=== PATIENT | female | born 1995 | race Caucasian/White ===

== ENCOUNTER 2024-12-04 23:56 | Inpatient (IN) | payer OTHER ==
[2024-12-05] MEDS ORDERED: METHOCARBAMOL 500 MG TABLET ONE (01:10)
[2024-12-05] MEDS ORDERED: oxyCODONE HCL 5 MG TABLET ONE (01:10)
[2024-12-05] MEDS: oxyCODONE HCL 5 MG TABLET PO ONE ×2 (01:22→23:31)
[2024-12-05] MEDS: METHOCARBAMOL 500 MG TABLET PO ONE (01:22)
[2024-12-05 01:38] LABS: CHLORIDE 107 mmol/L (98-107); POTASSIUM 4.3 mmol/L (3.5-5.1); SODIUM 138 mmol/L (136-145)
[2024-12-05 01:40] LABS: CALCIUM 9.1 mg/dL (8.5-10.1)
[2024-12-05 01:41] LABS: ALBUMIN 3.6 g/dl (3.4-5.0); ANION GAP 5 mmol/L (4-13); BLOOD UREA NITROGEN 10.4 mg/dL (7-18); CO2 27 mmol/L (21-32); GLUCOSE,RANDOM 98 mg/dL (74-106)
[2024-12-05 01:44] LABS: SGOT/AST 12 U/L (15-37); SGPT/ALT 17 U/L (13-61)
[2024-12-05 01:45] LABS: BILIRUBIN,TOTAL 0.4 mg/dL (0.2-1)
[2024-12-05 01:46] LABS: TOT PROT 7.7 g/dl (6.4-8.2)
[2024-12-05 01:47] LABS: ALK PHOS 69 U/L (45-117)
[2024-12-05] MEDS ORDERED: MORPHINE SULFATE 2 MG/ML SYRINGE ONE ×2 (02:35→05:41)
[2024-12-05] MEDS: morphine CARPU-JECT 2 MG/1 ML DISP.SYRIN IVPUSH ONE (02:41)
[2024-12-05] MEDS ORDERED: LIDOCAINE 4% PATCH TP ONE (03:52)
[2024-12-05] MEDS: LIDOCAINE 5% TOPICAL PATCH TP ONE (04:00)
[2024-12-05] MEDS ORDERED: ENOXAPARIN NA (PORCINE) 80 MG/0.8 ML DISP.SYRIN SQ ONE (04:33)
[2024-12-05 04:41] LABS: INR 1.15 (0.83-1.09); PROTHROMBIN TIME (PATIENT) 12.5 SEC (9.7-13.0)
[2024-12-05 04:44] LABS: ACTIVATED PTT 33.8 SECONDS (25.2-36.5)
[2024-12-05] MEDS: ENOXAPARIN NA (PORCINE) 80 MG/0.8 ML DISP.SYRIN SQ ONE (04:45)
[2024-12-05] MEDS: ENOXAPARIN NA (PORCINE) 60 MG/0.6 ML DISP.SYRIN SQ SCH (04:45)
[2024-12-05] MEDS ORDERED: ENOXAPARIN NA (PORCINE) 60 MG/0.6 ML DISP.SYRIN SQ SCH (04:45)
[2024-12-05 04:57] LABS: HEMOGLOBIN 12.3 g/dL (11.2-15.7); MCHC 31.5 g/dl (32.2-35.5); MEAN CELL VOLUME 87.6 fl (79.4-94.8); PLATELET COUNT 347 x10^3/uL (182-369); RDW 13.3 % (12.1-16.5)
[2024-12-05] MEDS: ENOXAPARIN NA (PORCINE) 60 MG/0.6 ML DISP.SYRIN SQ ONE (05:46)
[2024-12-05] MEDS: morphine CARPU-JECT 2 MG/1 ML DISP.SYRIN IVPUSH PRN (05:56)
[2024-12-05] MEDS: morphine SULFATE 4 MG/ML VIAL IVPUSH ONE (06:00)
[2024-12-05] MEDS ORDERED: MORPHINE SULFATE 2 MG/ML SYRINGE IVPUSH PRN (06:14)
[2024-12-05] MEDS ORDERED: ACETAMINOPHEN INJECTION 100 ML ONE (07:17)
[2024-12-05] MEDS: ACETAMINOPHEN 1000 MG/100 ML BAG IVPB PRN (07:23)
[2024-12-05] MEDS: APIXABAN 5 MG TABLET PO SCH (09:48)
[2024-12-05 10:30] VITALS: BMI 28.7
[2024-12-05] MEDS: ACETAMINOPHEN 325 MG TABLET (FP) PO SCH ×2 (11:26→14:01)
[2024-12-05] MEDS ORDERED: morphine CARPU-JECT 2 MG/1 ML DISP.SYRIN IVPUSH PRN (11:49)
[2024-12-05 16:35] LABS: LDH 172 U/L (84-246)
[2024-12-05] MEDS: LIDOCAINE PATCH REMOVAL MC ONE (17:18)
[2024-12-05] MEDS: IBUPROFEN 200 MG TABLET PO ONE (23:53)
[2024-12-05] MEDS: ACETAMINOPHEN 325 MG TABLET (FP) PO ONE (23:54)
[2024-12-06 07:58] LABS: HEMATOCRIT 37.6 % (34.1-44.9); HEMOGLOBIN 11.9 g/dL (11.2-15.7); MCHC 31.6 g/dl (32.2-35.5); MEAN CELL VOLUME 87.4 fl (79.4-94.8); MEAN PLT VOLUME 10.1 fl (9.4-12.3); PLATELET COUNT 353 x10^3/uL (182-369); RDW 13.3 % (12.1-16.5)
[2024-12-06 08:17] LABS: POTASSIUM 4.5 mmol/L (3.5-5.1)
[2024-12-06 08:28] LABS: ALBUMIN 3.4 g/dl (3.4-5.0); CALCIUM 9.3 mg/dL (8.5-10.1)
[2024-12-06 08:31] LABS: CREATININE 0.6 mg/dL (0.55-1.3)
[2024-12-06 08:32] LABS: BILIRUBIN,TOTAL 0.6 mg/dL (0.2-1); TOT PROT 7.5 g/dl (6.4-8.2)
[2024-12-06 09:22] LABS: EPI CELLS 16 /uL (0-25.1); HYALINE CASTS 0 /uL (0-3.1); URINE APPEARANCE CLEAR; URINE BACTERIA >9,000 /uL (0-1359); URINE BILIRUBIN NEGATIVE (NEGATIVE); URINE COLOR YELLOW; URINE GLUCOSE (UA) NEGATIVE (NEGATIVE); URINE KETONE 1+ (NEGATIVE); URINE LEUK ESTERASE TRACE (NEGATIVE); URINE NITRITE POSITIVE (NEGATIVE); URINE PROTEIN NEGATIVE (NEGATIVE); URINE RBC 4 /uL (0-23.9); URINE UROBILINOGEN 0.2 mg/dL (0.2-1.0); URINE WBC 35 /uL (0-25.8)
[2024-12-06] MEDS: LIDOCAINE 5% TOPICAL PATCH TP SCH (09:26)
[2024-12-06] MEDS: oxyCODONE HCL 5 MG TABLET PO PRN (09:50)
[2024-12-06] MEDS: CEFTRIAXONE 1 GM in DEXTROSE 5%-WATER - 50 ML IVPB SCH (20:23)
[2024-12-06] MEDS ORDERED: AZITHROMYCIN IVPB 500 MG/250 ML BAG IVPB SCH (20:46)
[2024-12-06] MEDS: AZITHROMYCIN IVPB 500 MG/250 ML BAG IVPB SCH (21:24)
[2024-12-06] MEDS: LIDOCAINE PATCH REMOVAL MC SCH (21:25)
[2024-12-06 22:29] VITALS: RESP 20
[2024-12-07 10:10] LABS: ABSOLUTE IMMATURE GRANULOCYTES 0.04 x10^3/uL (0.0-0.031); BASOPHILS # 0.02 x10^3/uL (0.01-0.08); EOSINOPHIL % 0.1 % (0.7-5.8); EOSINOPHILS # 0.01 x10^3/uL (0.04-0.36); HEMATOCRIT 36.7 % (34.1-44.9); HEMOGLOBIN 11.4 g/dL (11.2-15.7); MCHC 31.1 g/dl (32.2-35.5); MEAN CELL VOLUME 88.4 fl (79.4-94.8); MEAN PLT VOLUME 10.5 fl (9.4-12.3); MONOCYTE # 1.03 x10^3/uL (0.24-0.86); MONOCYTE % 8.3 % (4.7-12.5); PLATELET COUNT 360 x10^3/uL (182-369); RDW 13.5 % (12.1-16.5)
[2024-12-07 10:37] LABS: POTASSIUM 4.4 mmol/L (3.5-5.1)
[2024-12-07 10:40] LABS: CALCIUM 9.3 mg/dL (8.5-10.1)
[2024-12-07 10:41] LABS: BLOOD UREA NITROGEN 5.6 mg/dL (7-18); MAGNESIUM 1.9 mg/dL (1.8-2.4)
[2024-12-07 10:44] LABS: CREATININE 0.6 mg/dL (0.55-1.3)
[2024-12-07 10:45] LABS: BILIRUBIN,TOTAL 0.4 mg/dL (0.2-1); TOT PROT 7.2 g/dl (6.4-8.2)
[2024-12-07] MEDS: ACETAMINOPHEN 325 MG TABLET (FP) PO PRN (13:58)
[2024-12-07] MEDS: AZITHROMYCIN IVPB 500 MG/250 ML BAG IVPB SCH (14:00)
[2024-12-07] MEDS: oxyCODONE HCL 5 MG TABLET PO PRN (14:01)
[2024-12-07] MEDS: SODIUM CHLORIDE 1,000 ML IV SCH (14:31)
[2024-12-07] MEDS: MAGNESIUM SULF 50% (8.12 MEQ/2 ML-1 GM VIAL) IVPB ONE (14:31)
[2024-12-07] MEDS: oxyCODONE HCL 5 MG TABLET PO ONE (17:54)
[2024-12-07] MEDS: LIDOCAINE PATCH REMOVAL MC SCH (21:49)
[2024-12-07] MEDS: APIXABAN 5 MG TABLET PO SCH (21:49)
[2024-12-07] MEDS: ACETAMINOPHEN 325 MG TABLET (FP) PO ONE (22:48)
[2024-12-08 02:16] VITALS: BP 123/80; PULSE 116; TEMP 100.2
[2024-12-08] MEDS ORDERED: AZITHROMYCIN IVPB 500 MG/250 ML BAG IVPB SCH (10:00)
[2024-12-08] MEDS ORDERED: CEFTRIAXONE 1 GM in DEXTROSE 5%-WATER - 50 ML IVPB SCH (10:00)
[2024-12-08] MEDS ORDERED: LIDOCAINE 5% TOPICAL PATCH TP SCH (10:00)
[2024-12-12] MEDS ORDERED: APIXABAN 5 MG TABLET PO SCH ×2 (10:00)
== END 2024-12-08 04:00 | disposition short-term general hospital (02) | DRG 134 ==
LOC: JER 23:56 → JERBED 12-05 05:08 → J8W 12-05 09:05 → J4W 12-07 09:56
PROVIDERS: ADMIT Internal Medicine; ATTEND Nurse Practitioner Family
DX: I26.99 Other pulmonary embolism without acute cor pulmonale (principal); J18.9 Pneumonia, unspecified organism; D72.829 Elevated white blood cell count, unspecified; I24.89 Other forms of acute ischemic heart disease; N39.0 Urinary tract infection, site not specified; J90 Pleural effusion, not elsewhere classified
CPT/HCPCS: 36415; 71045-TC-FY; 71275-TC; 74177-TC; 80053; 81003; 81240; 81241; 82550; 83615; 83735; 84100; 84484; 84703; 85025; 85027; 85300; 85379; 85610; 85730; 87040; 87086; 93005; 93010; 93306-TC; 93970-TC; 94010; 99285-25; Q9967